=== PATIENT | female | born 1925 | race Caucasian/White ===

== ENCOUNTER 2017-05-05 11:19 | Inpatient (IN) | payer MEDICARE ==
[2017-05-05] MEDS ORDERED: NORMAL SALINE 1000 ML 1,000 ML IV PRN ×2 (11:24→15:10)
--- NOTE | 2017-05-05 11:28 | ER Document Report ---
ED General - General Stated Complaint: DIFFICULTY BREATHING Time Seen by Provider: 05/05/17 11:23 Mode of Arrival: Medic Information source: Emergency Med Personnel TRAVEL OUTSIDE OF THE [place] IN LAST 30 DAYS: No - HPI Patient complains to provider of: Altered mental status, difficulty breathing Onset: This morning Associated symptoms: Nonproductive cough, Shortness of breath Notes: Patient is an 89-year-old female sent from the [facility] for complaints of altered mental status with difficulty breathing, rapid respiratory rate, patient is normally more interactive, today she is crying out incomprehensibly, she is breathing at a rapid rate in the 30-40 range when EMS arrived, she did not seem to have any signs of trauma, patient is not answering questions at time of her arrival in the emergency room and therefore difficult to obtain a good history - Related Data Allergies/Adverse Reactions: ibuprofen [From Motrin] Allergy (Verified 05/05/17 11:46) Home Medications: Current Home Medications Acetaminophen [Tylenol 325 mg Tablet] 325 mg PO QAM 05/05/17 [History] Acetaminophen [Tylenol 325 mg Tablet] 650 mg PO Q6HP PRN 05/05/17 [History] Aspirin [Aspirin 325 mg Tablet] 325 mg PO DAILY 05/05/17 [History] Bacitracin [Bacitracin Oint Packets 144/Box] 1 applic TOP PRN PRN 05/05/17 [ History] Calcium Carbonate/Vitamin D3 [Calcium 600 + Vit D 400 Tablet] 1 tab PO BID 05/05 [History] Carvedilol [Coreg 6.25 mg Tablet] 6.25 mg PO Q12 05/05/17 [History] Cholecalciferol (Vitamin D3) [Vitamin D3 5000 unit Capsule] 5,000 unit PO BID [History] Cold Cream/Zinc Oxide/Star/Elvin [[place] Ointment] 1 applic TOP PRN PRN [History] Digoxin [Lanoxin 0.125 mg Tablet] 0.125 mg PO QHS 05/05/17 [History] Divalproex Sodium [Depakote] 125 mg PO QHS 05/05/17 [History] Donepezil HCl [Aricept 5 mg Tablet] 5 mg PO DAILY 05/05/17 [History] Ferrous Sulfate [Feosol 325 mg Tablet] 325 mg PO QHS 05/05/17 [History] Guaifenesin [Tussin] 10 ml PO Q4HP PRN 05/05/17 [History] Lisinopril [Prinivil 5 mg Tablet] 5 mg PO DAILY 05/05/17 [History] Magnesium Hydroxide [Milk of Magnesia 30 ml Udcup] 30 ml PO PRN PRN 05/05/17 [ History] Omeprazole 20 mg PO DAILY 05/05/17 [History] Pyridoxine HCl [Vitamin B-6] 50 mg PO DAILY 05/05/17 [History] Risperidone [Risperdal] 0.5 mg PO QHS 05/05/17 [History] Past Medical History - General Information source: Emergency Med Personnel - Social History Smoking Status: Unknown if Ever Smoked Family History: Reviewed & Not Pertinent - Past Medical History Cardiac Medical History: Reports: Hx Congestive Heart Failure, Hx Heart Attack, Hx Hypertension Psychiatric Medical History: Reports: Hx Dementia, Hx Depression Past Surgical History: Reports: Hx Cardiac Surgery - pacemaker, Hx Cholecystectomy, Hx Hysterectomy, Hx Pacemaker Review of Systems - Review of Systems -: Yes ROS unobtainable due to patient's medical condition Constitutional: No symptoms reported EENT: No symptoms reported Cardiovascular: No symptoms reported Respiratory: See HPI Gastrointestinal: No symptoms reported Genitourinary: No symptoms reported Female Genitourinary: No symptoms reported Musculoskeletal: No symptoms reported Skin: No symptoms reported Hematologic/Lymphatic: No symptoms reported Neurological/Psychological: Confusion Physical Exam - Vital signs Vitals: Temp Pulse Resp BP Pulse Ox 98.1 F 102 H 26 H 149/99 H 93 05/05/17 11:20 05/05/17 11:20 05/05/17 11:20 05/05/17 11:20 05/05/17 11:20 Interpretation: Tachypneic - General General appearance: Alert - HEENT Head: Normocephalic, Atraumatic Eyes: Normal Conjunctiva: Normal Extraocular movements intact: Yes Eyelashes: Normal Pupils: PERRL Mucous membranes: Dry Pharynx: Normal - Respiratory Respiratory status: No respiratory distress, Tachypnea Chest status: Nontender Breath sounds: Normal Chest palpation: Normal - Cardiovascular Rhythm: Regular Heart sounds: Normal auscultation - Abdominal Inspection: Normal Distension: No distension Bowel sounds: Normal Tenderness: Nontender Organomegaly: No organomegaly - Back Back: Normal, Nontender - Extremities General upper extremity: Normal inspection Calf: Other - 2 Centimeter skin tear to the left posterior calf Foot: Edema - trace pedal edema - Neurological Deepika Coma Scale Eye Opening: Spontaneous [place] Coma Scale Verbal: Incomprehensible [place] Coma Scale Motor: Obeys Commands Deepika Coma Scale Total: 12 - Skin Skin Temperature: Warm Skin Moisture: Dry Skin Color: Normal Course - Re-evaluation Re-evalutation: 05/05/17 11:57 Patient's daughter, Winnie Schneider, is at bedside, reports that patient has actually been deteriorating since Saturday of last week, when she noted patient was not eating which is unusual for her, and over the past few days she has become significantly worse, 100 does report that it is patient's wish to be a DNR/DNI, it is also daughter's wish for patient to be DNR/DNI, even though no official paperwork has arrived with patient's chart from the [facility] 05/05/17 13:35 Patient lab and imaging findings were reviewed, she is noted to have quite a few abnormalities, I had a lengthy discussion with patient's daughter Winnie, at bedside regarding her prognosis which is poor at this point in time, patient' s daughter agrees that no invasive measures should be taken at this point in time, she is agreeable to BiPAP with IV fluids and antibiotics, as well as comfort care measures at this point in time Was discussed with Dr. Ritter who agrees to admit for further evaluation and treatment - Vital Signs Vital signs: Temp Pulse Resp BP Pulse Ox 97.9 F 92 35 H 92/35 L 91 L 05/05/17 16:09 05/05/17 16:09 05/05/17 16:20 05/05/17 16:09 05/05/17 16:20 - Laboratory Result Diagrams: 05/05/17 11:23 05/05/17 11:23 Laboratory results interpreted by me: 05/05/17 05/05/17 05/05/17 11:23 11:23 11:23 RBC 5.66 H Hgb 16.5 H Hct 52.7 H MCHC 31.3 L RDW 16.4 H Seg Neutrophils % 78.3 H Lymphocytes % 12.2 L D-Dimer VBG pH VBG pCO2 VBG HCO3 Sodium 145.2 H Potassium 6.1 H* Carbon Dioxide 35 H BUN 74 H Creatinine 1.51 H Est GFR ( Amer) 39 L Est GFR (Non-Af Amer) 32 L Glucose 112 H Direct Bilirubin 0.5 H AST 47 H ALT 65 H NT-Pro-B Natriuret Pep 21394 H Albumin 3.4 L Urine Protein Urine Blood Urine Urobilinogen Ur Leukocyte Esterase Digoxin 0.71 L 05/05/17 05/05/17 05/05/17 11:23 11:23 12:20 RBC Hgb Hct MCHC RDW Seg Neutrophils % Lymphocytes % D-Dimer 1.84 H VBG pH 7.27 L VBG pCO2 77.1 H* VBG HCO3 34.8 H Sodium Potassium Carbon Dioxide BUN Creatinine Est GFR ( Amer) Est GFR (Non-Af Amer) Glucose Direct Bilirubin AST ALT NT-Pro-B Natriuret Pep Albumin Urine Protein >=500 H Urine Blood MODERATE H Urine Urobilinogen 2.0 H Ur Leukocyte Esterase MODERATE H Digoxin - Diagnostic Test Radiology reviewed: Image reviewed, Reports reviewed - EKG Interpretation by Me EKG shows normal: Sinus rhythm Rate: Normal Rhythm: NSR Heart block present: 1st Degree Critical Care Note - Critical Care Note Total time excluding time spent on procedures (mins): 45 Comments: Patient arrived in respiratory distress with rapid shallow breathing, tachypnea , requiring BiPAP placement, and admission to the hospitalist service Discharge - Discharge Clinical Impression: Do not resuscitate status, Acute hypoxemic respiratory failure, Elevated troponin, SIRS (systemic inflammatory response syndrome), Hyperkalemia UTI (urinary tract infection) Qualifiers: Urinary tract infection type: site unspecified Hematuria presence: without hematuria Qualified Code(s): N39.0 - Urinary tract infection, site not specified Condition: Critical Disposition: ADMITTED INPATIENT Admitting Provider: Hospitalist Unit Admitted: Medical Floor
[2017-05-05 11:40] LABS: VENOUS BLOOD BASE EXCESS 4.6 mmol/L; VENOUS BLOOD HCO3 34.8 mmol/L (20-32); VENOUS BLOOD PH 7.27 (7.30-7.42)
[2017-05-05 11:42] LABS: VENOUS BLOOD PCO2 77.1 mmHg (35-63)
[2017-05-05 11:45] LABS: ABSOLUTE LYMPHOCYTES (AUTO) 1.3 10^3/uL (0.5-4.7); ABSOLUTE MONOCYTES (AUTO) 0.9 10^3/uL (0.1-1.4); ABSOLUTE NEUT (AUTO) 8.1 10^3/uL (1.7-8.2); BASOPHILS % (AUTO) 0.3 % (0-2); EOSINOPHILS % (AUTO) 0.3 % (0-6); HEMATOCRIT 52.7 % (36.0-47.0); HEMOGLOBIN 16.5 g/dL (12.0-15.5); HGB HCT DIFFERENCE -3.2; LYMPHOCYTES % (AUTO) 12.2 % (13-45); MEAN CORPUSCULAR HEMOGLOBIN 29.2 pg (27.0-33.4); MEAN CORPUSCULAR HGB CONC 31.3 g/dL (32.0-36.0); MEAN CORPUSCULAR VOLUME 93 fl (80-97); MONOCYTES % (AUTO) 8.9 % (3-13); RED BLOOD COUNT 5.66 10^6/uL (3.72-5.28); RED CELL DISTRIBUTION WIDTH 16.4 % (11.5-14.0); SEGMENTED NEUTROPHILS % (AUTO) 78.3 % (42-78); WHITE BLOOD COUNT 10.4 10^3/uL (4.0-10.5)
[2017-05-05 11:49] LABS: PARTIAL THROMBOPLASTIN TIME 26.7 SEC (23.5-35.8); PROTHROMBIN TIME 13.9 SEC (11.4-15.4)
[2017-05-05 12:01] LABS: ALANINE AMINOTRANSFERASE 65 U/L (9-52); ALBUMIN 3.4 g/dL (3.5-5.0); ALKALINE PHOSPHATASE 65 U/L (38-126); ANION GAP 9 (5-19); ASPARTATE AMINO TRANSFERASE 47 U/L (14-36); BILIRUBIN,DIRECT 0.5 mg/dL (0.0-0.4); BILIRUBIN,TOTAL 0.5 mg/dL (0.2-1.3); BLOOD UREA NITROGEN 74 mg/dL (7-20); CARBON DIOXIDE 35 mmol/L (22-30); CHLORIDE 101 mmol/L (98-107); CREATINE KINASE 32 U/L (30-135); CREATININE RESULT 1.51 mg/dL (0.52-1.25); GLUCOSE 112 mg/dL (75-110); SODIUM 145.2 mmol/L (137-145); TOTAL PROTEIN 6.7 g/dL (6.3-8.2)
--- NOTE | 2017-05-05 12:05 | RADIOLOGY REPORT (SQ) ---
EXAM DESCRIPTION: CHEST SINGLE VIEW COMPLETED DATE/TIME: 05/05/2017 11:51 am REASON FOR STUDY: db COMPARISON: 2015. CT chest 10/04/2016. NUMBER OF VIEWS: One view. TECHNIQUE: Single frontal radiographic view of the chest acquired. LIMITATIONS: None. FINDINGS: LUNGS AND PLEURA: Diminished aeration left base could reflect pneumonia. No significant p leural fluid. No pneumothorax. MEDIASTINUM AND HILAR STRUCTURES: Stable contours. HEART AND VASCULAR STRUCTURES: Heart size probably stable allowing for portable technique. There gee ears to be some cardiomegaly. Minimal vascular congestion may be present but otherwise, no overt errol ma. BONES: Osteopenic. Limited assessment. No acute fracture evident. HARDWARE: Right pacer. Extensive external lead artifacts. OTHER: No other significant finding. IMPRESSION: 1. Diminished aeration left base could reflect pneumonia. Otherwise, mild vascular fifi estion. TECHNICAL DOCUMENTATION: JOB ID: [id number] [employer]- All Rights Reserved
[2017-05-05 12:08] LABS: DIGOXIN 0.71 ng/mL (0.8-2.0)
[2017-05-05 12:10] LABS: POTASSIUM 6.1 mmol/L (3.6-5.0)
[2017-05-05 12:13] LABS: CREATINE KINASE MB 1.49 ng/mL (<4.55)
[2017-05-05] MEDS ORDERED: DEXTROSE 50%-WATER 25 GM/50 ML DISP.SYRIN IV ONE (12:13)
[2017-05-05] MEDS ORDERED: CALCIUM GLUCONATE 1000 MG/10 ML INJ IV ONE (12:13)
[2017-05-05] MEDS ORDERED: INSULIN REG, HUMAN 100 UNIT/ML 3 ML VIAL (PYX) IV ONE (12:13)
[2017-05-05 12:26] LABS: TROPONIN I 0.271 ng/mL
[2017-05-05] MEDS ORDERED: ASPIRIN 81 MG TABLET, CHEWABLE PO ONE (12:28)
[2017-05-05 12:53] LABS: AMORPHOUS SEDIMENT,URINE TRACE /HPF; APPEARANCE,URINE TURBID; BILIRUBIN,URINE NEGATIVE (NEGATIVE); GLUCOSE, URINE NEGATIVE (NEGATIVE); KETONES,URINE NEGATIVE (NEGATIVE); LEUKOCYTE ESTERASE,URINE MODERATE (NEGATIVE); NITRITE,URINE NEGATIVE (NEGATIVE); PROTEIN,URINE >=500 mg/dL (NEGATIVE); URINE SPECIFIC GRAVITY 1.018
[2017-05-05] MEDS ORDERED: ASPIRIN 300 MG SUPP, RECTAL PR ONE (13:02)
[2017-05-05] MEDS ORDERED: CEFTRIAXONE INJ 1000 MG VIAL IV ONE (13:04)
--- NOTE | 2017-05-05 13:26 | EKG REPORT ---
SEVERITY:- ABNORMAL ECG - SINUS RHYTHM FIRST DEGREE AV BLOCK PROBABLE LEFT ATRIAL ABNORMALITY LEFT ANTERIOR FASCICULAR BLOCK ANTERIOR INFARCT, OLD : Confirmed by: Socorro Thomas 05-May-2017 13:26:16
[2017-05-05] MEDS ORDERED: DEXTROSE 50%-WATER 25 GM/50 ML DISP.SYRIN IV PRN ×2 (14:55)
[2017-05-05] MEDS ORDERED: DEXTROSE 40% GEL 15 GM TUBE PO PRN ×2 (14:55)
[2017-05-05] MEDS ORDERED: GLUCAGON,HUMAN RECOMB 1 MG INJ SUBCUT PRN (14:55)
[2017-05-05] MEDS ORDERED: ALBUTEROL SULFATE 0.083% NEB 2.5 MG/3 ML AMPUL NEB PRN (15:10)
[2017-05-05] MEDS ORDERED: ACETAMINOPHEN 650 MG SUPP.RECT PR PRN (15:15)
[2017-05-05] MEDS ORDERED: ACETAMINOPHEN 325 MG TABLET PO PRN (15:15)
[2017-05-05] MEDS ORDERED: ONDANSETRON HCL INJ/PF 4 MG/2 ML SDV IV PRN (15:15)
--- NOTE | 2017-05-05 16:58 | PDOC H&P ---
History of Present Illness Admission Date/PCP: 05/05/17 13:52 BRIANNE PINTO MD Patient complains of: low o2 sats History of Present Illness: NITA SIFUENTES is a 89 year old female with advanced dementia living at [facility] presents today when staff noted her O2 sat low into the 70's and she was less responsive than normal. She is currently obtunded and according to the daughter wouldn't be able to provide ROS or medical hx on her best day anyway, she usually just "hollers out" randomly and only occasionally will she string a few words together that don't always seem appropriate to the conversation at hand. she also notes she is bed bound, hasn't ambulated in years but is able to feed herself and is alert and sits up in chair most days. She saw her last on Sat and she seemed barely able to keep her eyes open at the time but no cough or phlegm, no reported fevers or strong smell f urine and otherwise seemed in her usual state of health. eval in the ED shows her hypercapnic and hypoxic resp failure, she is currently on BiPAP and still not responsive, clear CXR, probable UTI, volume depletion, CONY and hyperkalemia for which she received insulin/dextrose and we were asked to admit for further eval and management. she is DNR Past Medical History Cardiac Medical History: Reports: Congestive Heart Failure, Myocardial Infarction, Hypertension Psychiatric Medical History: Reports: Dementia, Depression Past Surgical History Past Surgical History: Reports: Cholecystectomy, Hysterectomy, Pacemaker Social History Information Source: Relative Smoking Status: Never Smoker Frequency of Alcohol Use: None Hx Recreational Drug Use: No Hx Prescription Drug Abuse: No - Advance Directive Resuscitation Status: Do Not Resuscitate Family History Family History: Reviewed & Not Pertinent Parental Family History Reviewed: Yes Children Family History Reviewed: Yes Sibling(s) Family History Reviewed.: Yes Medication/Allergy Home Medications: Acetaminophen [Tylenol 325 mg Tablet] 325 mg PO QAM 05/05/17 Acetaminophen [Tylenol 325 mg Tablet] 650 mg PO Q6HP PRN 05/05/17 Aspirin [Aspirin 325 mg Tablet] 325 mg PO DAILY 05/05/17 Bacitracin [Bacitracin Oint Packets 144/Box] 1 applic TOP PRN PRN 05/05/17 Calcium Carbonate/Vitamin D3 [Calcium 600 + Vit D 400 Tablet] 1 tab PO BID 05/05 Carvedilol [Coreg 6.25 mg Tablet] 6.25 mg PO Q12 05/05/17 Cholecalciferol (Vitamin D3) [Vitamin D3 5000 unit Capsule] 5,000 unit PO BID Cold Cream/Zinc Oxide/Star/Elvin [Dermacloud Ointment] 1 applic TOP PRN PRN Digoxin [Lanoxin 0.125 mg Tablet] 0.125 mg PO QHS 05/05/17 Divalproex Sodium [Depakote] 125 mg PO QHS 05/05/17 Donepezil HCl [Aricept 5 mg Tablet] 5 mg PO DAILY 05/05/17 Ferrous Sulfate [Feosol 325 mg Tablet] 325 mg PO QHS 05/05/17 Guaifenesin [Tussin] 10 ml PO Q4HP PRN 05/05/17 Lisinopril [Prinivil 5 mg Tablet] 5 mg PO DAILY 05/05/17 Magnesium Hydroxide [Milk of Magnesia 30 ml Udcup] 30 ml PO PRN PRN 05/05/17 Omeprazole 20 mg PO DAILY 05/05/17 Pyridoxine HCl [Vitamin B-6] 50 mg PO DAILY 05/05/17 Risperidone [Risperdal] 0.5 mg PO QHS 05/05/17 Allergies/Adverse Reactions: ibuprofen [From Motrin] Allergy (Verified 05/05/17 11:46) Review of Systems ROS unobtainable: Due to mental status Physical Exam Vital Signs: Temp Pulse Resp BP Pulse Ox 98.1 F 102 H 30 H 106/93 H 94 05/05/17 11:20 05/05/17 11:20 05/05/17 15:19 05/05/17 15:01 05/05/17 15:19 General appearance: PRESENT: well-developed, well-nourished. ABSENT: no acute distress - obtunded, will not respond to noxious stimuli Head exam: PRESENT: atraumatic, normocephalic Mouth exam: PRESENT: dry mucosa, neck supple, tongue midline Neck exam: PRESENT: other - bipap mask in place. ABSENT: tracheal deviation Respiratory exam: PRESENT: accessory muscle use, clear to auscultation alvina, decreased breath sounds - at the bases. ABSENT: rales, rhonchi, stridor, wheezes Cardiovascular exam: PRESENT: RRR. ABSENT: systolic murmur Pulses: PRESENT: normal radial pulses Vascular exam: ABSENT: normal capillary refill - diminished GI/Abdominal exam: PRESENT: hypoactive bowel sounds, soft. ABSENT: tenderness Extremities exam: PRESENT: pedal edema - trace at the ankles. ABSENT: clubbing Neurological exam: PRESENT: altered Skin exam: PRESENT: dry, mottled - fingers and toes. ABSENT: warm - cool and dusky Results Laboratory Results: labs reviewed, elevated pCO2 and decreased O2, elevated dimer, hemoconcenctration on labs, ARF with normal Scr 0.9 now 1.5, BNP 20274 and TpI 0.271 EKG Comments: NSR with 1st AVB, poor R wave progression, no ST changes to suggest acute ischemia Impressions: Chest X-Ray 05/05/17 11:24 IMPRESSION: 1. Diminished aeration left base could reflect pneumonia. Otherwise, mild vascular congestion. Assessment & Plan - Diagnosis (1) Acute respiratory failure with hypoxia and hypercapnia Is this a current diagnosis for this admission?: YesPlan: unclear etiology but given relative immobility, advanced age and elevated dimer certainly could be acute PE; other possibillities include acute DC with stunned myocardium and hypovolemic relative heart/pump failure that she is too intravascularly depleted to reflect on physical exam at this time. continue BiPAP through the night and if no improvement in her condition by morning her daughter will probably have this removed. (2) Do not resuscitate status Is this a current diagnosis for this admission?: Yes (3) Elevated troponin Is this a current diagnosis for this admission?: YesPlan: after discussion with daughter/POA, she doesn't want aggressive intervention so no need to trend ecgs or ck repeat echo; will treat for AMI as her condition will allow, currently she is too sedated to take oral meds. (4) Hyperkalemia Is this a current diagnosis for this admission?: YesPlan: received insulin/dextrose in ED, will repeat labs in am but again no aggressive intervention and she is too weak to tolerate kayexolate, I suspect this is secondary to myocardial ischemia complicated by her acute renal failure (5) UTI (urinary tract infection) Qualifiers: Urinary tract infection type: site unspecified Hematuria presence: without hematuria Qualified Code(s): N39.0 - Urinary tract infection, site not specified (6) Coronary artery disease Qualifiers: Coronary Disease-Associated Artery/Lesion type: [place] artery [place] vs. transplanted heart: [place] heart Associated angina: angina presence unspecified Qualified Code(s): I25.10 - Atherosclerotic heart disease of [place] coronary artery without angina pectoris Is this a current diagnosis for this admission?: YesPlan: see above (7) Dementia Qualifiers: Dementia type: unspecified type Dementia behavioral disturbance: with behavioral disturbance Qualified Code(s): F03.91 - Unspecified dementia with behavioral disturbance Is this a current diagnosis for this admission?: Yes (8) Diastolic CHF Qualifiers: Congestive heart failure chronicity: acute on chronic Qualified Code (s): I50.33 - Acute on chronic diastolic (congestive) heart failure Is this a current diagnosis for this admission?: YesPlan: probably accounts for at least some of her elevated BNP; last echo 2016 shows grade 2/4 diastolic dysfxn, hypokinesis LV, probable patent FO, moderate MR and mild TR. she appears hypovolemic so will need to give IVFs at least overnight and monitor for effect. (9) Dysphagia Qualifiers: Dysphagia type: unspecified Qualified Code(s): R13.10 - Dysphagia, unspecified Is this a current diagnosis for this admission?: YesPlan: she is on modified consistency while at the facility; NPO for now until she is alert enough to reassess. - Time Time Spent: Greater than 70 Minutes Medications reviewed and adjusted accordingly: Yes - Inpatient Certification Based on my medical assessment, after consideration of the patient's comorbidities, presenting symptoms, or acuity I expect that the services needed warrant INPATIENT care.: Yes I certify that my determination is in accordance with my understanding of Medicare's requirements for reasonable and necessary INPATIENT services [42 CFR 412.3e].: Yes Medical Necessity: Significant Comorbidiites Make Outpatient Treatment Too Risky , Need Close Monitoring Due to Risk of Patient Decompensation, Need For IV Fluids, Need for IV Antibiotics, Risk of Complication if Not Cared For in Hospital - Plan Summary Plan Summary: had long discussion with her daughter and we are going to take a very conservative approach,family is coming in from [place] and should arrive by morning ; will continue BiPAP overnight and d/c in am if on appreciable impact per daughter's wishes; she is ok for abx and breathing treatments but no aggressive or invasive interventions.
[2017-05-05] MEDS: IPRATROPIUM/ALBUTEROL 0.5-2.5 MG/3 ML AMPUL NEB SCH (19:33)
[2017-05-05] MEDS: ENOXAPARIN SODIUM INJ 60 MG/0.6 ML DISP.SYRIN SUBCUT SCH (21:01)
[2017-05-05] MEDS ORDERED: HEPARIN SOD (PORCINE) 5,000 UNIT/ML 1 ML SYRINGE SUBCUT SCH (22:00)
[2017-05-05] MEDS: FAMOTIDINE INJ/PF 20 MG/2 ML SDV IV SCH (22:27)
[2017-05-06] MEDS: IPRATROPIUM/ALBUTEROL 0.5-2.5 MG/3 ML AMPUL NEB SCH ×4 (01:43→20:24)
[2017-05-06 05:09] LABS: ABSOLUTE EOSINOPHILS # (AUTO) 0.1 10^3/uL (0.0-0.6); ABSOLUTE LYMPHOCYTES (AUTO) 1.3 10^3/uL (0.5-4.7); ABSOLUTE MONOCYTES (AUTO) 0.9 10^3/uL (0.1-1.4); ABSOLUTE NEUT (AUTO) 6.4 10^3/uL (1.7-8.2); BASOPHILS % (AUTO) 0.4 % (0-2); EOSINOPHILS % (AUTO) 1.1 % (0-6); HEMATOCRIT 48.7 % (36.0-47.0); HEMOGLOBIN 15.1 g/dL (12.0-15.5); HGB HCT DIFFERENCE -3.4; LYMPHOCYTES % (AUTO) 14.5 % (13-45); MEAN CORPUSCULAR HGB CONC 30.9 g/dL (32.0-36.0); MEAN CORPUSCULAR VOLUME 94 fl (80-97); MONOCYTES % (AUTO) 10.2 % (3-13); SEGMENTED NEUTROPHILS % (AUTO) 73.8 % (42-78); WHITE BLOOD COUNT 8.6 10^3/uL (4.0-10.5)
[2017-05-06 05:21] LABS: ANION GAP 9 (5-19); BLOOD UREA NITROGEN 80 mg/dL (7-20); CALCIUM 8.8 mg/dL (8.4-10.2); CARBON DIOXIDE 33 mmol/L (22-30); CHLORIDE 103 mmol/L (98-107); CREATININE RESULT 1.66 mg/dL (0.52-1.25); GLUCOSE 86 mg/dL (75-110); SODIUM 145.3 mmol/L (137-145)
[2017-05-06 05:28] LABS: POTASSIUM 6.4 mmol/L (3.6-5.0)
[2017-05-06] MEDS ORDERED: LORAZEPAM INJ 2 MG/1 ML VIAL IV ONE (08:30)
[2017-05-06] MEDS ORDERED: SODIUM POLYSTYRENE SULFONATE 15 GM/60 ML PO ONE (08:30)
[2017-05-06] MEDS ORDERED: INSULIN REG, HUMAN 100 UNIT/ML 3 ML VIAL (PYX) IV ONE (08:30)
[2017-05-06] MEDS ORDERED: DEXTROSE 50%-WATER 25 GM/50 ML DISP.SYRIN IV ONE (08:30)
[2017-05-06] MEDS ORDERED: DIVALPROEX SODIUM 125 MG CAP.SPRINK PO ONE (09:00)
[2017-05-06] MEDS ORDERED: CEFTRIAXONE 1 GM/D5W RTU 1 GM/50 ML RTUPB IV SCH (10:00)
[2017-05-06] MEDS: FAMOTIDINE INJ/PF 20 MG/2 ML SDV IV SCH (10:38)
--- NOTE | 2017-05-06 13:25 | PDOC PROGRESS REPORT ---
Subjective Progress Note for:: 05/06/17 Subjective:: reason for visit: f/u resp failure, possible PE, NSTEMI, UTI hospital course: NITA SIFUENTES is a 89 year old female with advanced dementia living at [facility] presents today when staff noted her O2 sat low into the 70's and she was less responsive than normal. She is currently obtunded and according to the daughter wouldn't be able to provide ROS or medical hx on her best day anyway, she usually just "hollers out" randomly and only occasionally will she string a few words together that don't always seem appropriate to the conversation at hand. she also notes she is bed bound, hasn't ambulated in years but is able to feed herself and is alert and sits up in chair most days. She saw her last on Sat and she seemed barely able to keep her eyes open at the time but no cough or phlegm, no reported fevers or strong smell of urine and otherwise seemed in her usual state of health. eval in the ED shows her hypercapnic and hypoxic resp failure, she is currently on BiPAP and still not responsive, clear CXR, probable UTI, volume depletion, CONY and hyperkalemia for which she received insulin/dextrose and we were asked to admit for further eval and management. she is DNR. By Saturday she had awakened enough to fight with the staff regarding the BiPAP, she calls out or grunts her displeasure and physically removes the mask from her face. Her daughter states she seems to be hallucinating by reaching into the air for things that aren't there, fiddling with her hands like there is something in them or staring off into space. she moves all 4 extremities but will not follow commands. she will participate in her interview or even seem aware of my presence until I try to examine her and she swats at or pulls away my hands. ROS: unobtainable due to her mental state Physical Exam Vital Signs: Temp Pulse Resp BP Pulse Ox 97.5 F 69 22 H 119/96 H 86 L 05/06/17 07:58 05/06/17 08:51 05/06/17 08:51 05/06/17 07:58 05/06/17 08:51 Intake & Output 05/05/17 05/06/17 05/07/17 06:59 06:59 06:59 Intake Total 2 Output Total 0 Balance 2 Weight 56.4 kg General appearance: PRESENT: mild distress, well-developed Head exam: PRESENT: atraumatic, normocephalic Eye exam: PRESENT: EOMI. ABSENT: conjunctival injection, scleral icterus Mouth exam: PRESENT: dry mucosa, neck supple Neck exam: ABSENT: tracheal deviation Respiratory exam: PRESENT: clear to auscultation alvina - anterior apex only place I could ascultate without really upsetting her. ABSENT: tachypnea, wheezes Cardiovascular exam: PRESENT: RRR, tachycardia Pulses: PRESENT: normal dorsalis pedis pul GI/Abdominal exam: PRESENT: hypoactive bowel sounds, soft Extremities exam: PRESENT: +1 edema Neurological exam: PRESENT: altered, awake Psychiatric exam: PRESENT: agitated, anxious Focused psych exam: PRESENT: psychomotor agitation, restlessness Skin exam: PRESENT: dry. ABSENT: warm - cool Results Laboratory Results: 05/06/17 04:27 05/06/17 04:27 05/06/17 05/06/17 04:27 04:27 WBC 8.6 RBC 5.20 Hgb 15.1 Hct 48.7 H MCV 94 MCH 29.0 MCHC 30.9 L RDW 16.0 H Plt Count 121 L Seg Neutrophils % 73.8 Lymphocytes % 14.5 Monocytes % 10.2 Eosinophils % 1.1 Basophils % 0.4 Absolute Neutrophils 6.4 Absolute Lymphocytes 1.3 Absolute Monocytes 0.9 Absolute Eosinophils 0.1 Absolute Basophils 0.0 Sodium 145.3 H Potassium 6.4 H* Chloride 103 Carbon Dioxide 33 H Anion Gap 9 BUN 80 H Creatinine 1.66 H Est GFR ( Amer) 35 L Est GFR (Non-Af Amer) 29 L Glucose 86 Calcium 8.8 05/06/17 04:27 Troponin I 0.282 Impressions: Chest X-Ray 05/05/17 11:24 IMPRESSION: 1. Diminished aeration left base could reflect pneumonia. Otherwise, mild vascular congestion. Assessment & Plan - Diagnosis (1) Acute respiratory failure with hypoxia and hypercapnia Is this a current diagnosis for this admission?: YesPlan: unclear etiology but given relative immobility, advanced age and elevated dimer certainly could be acute PE; other possibillities include acute SC with stunned myocardium and pump failure. (2) Elevated troponin Is this a current diagnosis for this admission?: YesPlan: slightly worse; after discussion with daughter/POA, she doesn't want aggressive intervention so no need to trend ecgs or ck repeat echo; will treat for AMI as her condition will allow, currently she is too confused alternating with sedated to take oral meds. (3) Hyperkalemia Is this a current diagnosis for this admission?: YesPlan: worse; worrisome for ischemia but unclear whether related to heart, brain, bowel or what at this point. she received insulin/dextrose in ED, will repeat again this morning and not repeat labs as no aggressive intervention desired by family as they move closer to comfort measures with each new problem that arises (4) UTI (urinary tract infection) Qualifiers: Urinary tract infection type: site unspecified Hematuria presence: without hematuria Qualified Code(s): N39.0 - Urinary tract infection, site not specified Is this a current diagnosis for this admission?: YesPlan: agreeable to continuing IV rocephin until culture results back to confirm pathogen (5) Acute encephalopathy Is this a current diagnosis for this admission?: YesPlan: waxing and waning; multifactorial and 2/2 to UTI, hypercapnea, hypoxia and must entertain the possibility of stroke accounting for her sudden change, elevated BNP and troponins, etc. (6) Coronary artery disease Qualifiers: Coronary Disease-Associated Artery/Lesion type: [place] artery [place] vs. transplanted heart: [place] heart Associated angina: angina presence unspecified Qualified Code(s): I25.10 - Atherosclerotic heart disease of [place] coronary artery without angina pectoris Is this a current diagnosis for this admission?: YesPlan: see above (7) Dementia Qualifiers: Dementia type: unspecified type Dementia behavioral disturbance: with behavioral disturbance Qualified Code(s): F03.91 - Unspecified dementia with behavioral disturbance; F10.97 - Alcohol use, unspecified with alcohol- induced persisting dementia Is this a current diagnosis for this admission?: Yes (8) Diastolic CHF Qualifiers: Congestive heart failure chronicity: acute on chronic Qualified Code (s): I50.33 - Acute on chronic diastolic (congestive) heart failure Is this a current diagnosis for this admission?: Yes (9) Dysphagia Qualifiers: Dysphagia type: unspecified Qualified Code(s): R13.10 - Dysphagia, unspecified Is this a current diagnosis for this admission?: Yes (10) Do not resuscitate status Is this a current diagnosis for this admission?: Yes - Time Time Spent with patient: 25-34 minutes - Plan Summary Plan Summary: I met with her daughter at the bedside, she is POA, we discussed her findings and she reiterated her desire for no aggressive interventions or even investigations at this point. she states this is in accordance with her mother' s stated wishes when she made her POA. I described all likely pathologic processes in play here and what we could about each and she is agreeable to continuing Iv abx, gently IVFs but with a stop date, supplemental O2 for comfort , subQ lovenox once daily (accepting its asct'd risks) and general supportive care. She no longer wants BiPAP used and if her respiratory status declines, she is agreeable to change to comfort measures and use of morphine to relieve breathlessness and agitation asct'd with respiratory compromise. it is unclear whether she will improve with treatment of her UTI and presumptive tx of possible PE and NSTEMI. I feel her prognosis for a meaningful recovery is grim even with aggressive treatment and wholeheartedly support her daughter's decisions for conservative approach to treatment.
[2017-05-06] MEDS ORDERED: ONDANSETRON HCL INJ/PF 4 MG/2 ML SDV IV PRN (15:23)
[2017-05-06] MEDS ORDERED: MORPHINE SULFATE 10 MG/ML INJ SUBCUT PRN (15:58)
[2017-05-06] MEDS ORDERED: ONDANSETRON 4 MG TAB.RAPDIS PO PRN (16:04)
[2017-05-06] MEDS: HALOPERIDOL LACTATE INJ 5 MG/1 ML VIAL IM PRN (16:21)
[2017-05-06] MEDS: ENOXAPARIN SODIUM INJ 60 MG/0.6 ML DISP.SYRIN SUBCUT SCH (17:30)
[2017-05-06] MEDS ORDERED: IPRATROPIUM/ALBUTEROL 0.5-2.5 MG/3 ML AMPUL NEB PRN (20:25)
[2017-05-06] MEDS: DIVALPROEX SODIUM 125 MG CAP.SPRINK PO SCH (23:29)
[2017-05-07] MEDS: HALOPERIDOL LACTATE INJ 5 MG/1 ML VIAL IM PRN ×3 (03:03→16:08)
[2017-05-07] MEDS: CEFTRIAXONE INJ 1000 MG VIAL IM SCH (09:28)
[2017-05-07] MEDS ORDERED: FAMOTIDINE INJ/PF 20 MG/2 ML SDV IV SCH (10:00)
[2017-05-07] MEDS ORDERED: CEFTRIAXONE INJ 1000 MG VIAL IM SCH (10:00)
[2017-05-07] MEDS ORDERED: LIDOCAINE HCL 1% INJ (FOR 500 MG VIAL) INJ SCH (10:00)
[2017-05-07] MEDS ORDERED: CEFTRIAXONE 1 GM/D5W RTU 1 GM/50 ML RTUPB IV SCH (10:00)
[2017-05-07 14:30] LABS: ANION GAP 12 (5-19); BLOOD UREA NITROGEN 73 mg/dL (7-20); CALCIUM 8.4 mg/dL (8.4-10.2); CARBON DIOXIDE 32 mmol/L (22-30); CHLORIDE 103 mmol/L (98-107); CREATININE RESULT 1.29 mg/dL (0.52-1.25); GLUCOSE 119 mg/dL (75-110); POTASSIUM 4.8 mmol/L (3.6-5.0); SODIUM 146.8 mmol/L (137-145)
--- NOTE | 2017-05-07 18:15 | PDOC PROGRESS REPORT ---
Subjective Progress Note for:: 05/07/17 Subjective:: This is a follow-up visit for acute metabolic encephalopathy and urinary tract infection. I have spoken with the patient's daughter at the bedside we have spoken at length about the patient and the current plan. The decision is to continue minimal intervention. Patient is currently demented and review of systems cannot be obtained Physical Exam Vital Signs: Temp Pulse Resp BP Pulse Ox 97.7 F 52 L 24 H 121/83 92 05/07/17 07:36 05/07/17 07:36 05/07/17 07:36 05/07/17 07:36 05/07/17 07:40 Intake & Output 05/06/17 05/07/17 05/08/17 06:59 06:59 06:59 Intake Total 2 300 Output Total 0 Balance 2 300 Weight 56.4 kg 60.3 kg Physical exam: General: This is a well-developed elderly white female resting in bed yelling out but in no acute distress Heart: Regular rate and rhythm no murmurs rubs or gallops, although it is difficult to tell considering the patient is yelling during the exam Lungs: Clear to auscultation bilaterally from the anterior perspective but again it is difficult to fully assess with the patient actively yelling during the exam Abdomen: Soft nondistended with active bowel sounds Extremities: No cyanosis or edema clubbing Neuro: Alert not oriented patient moves all extremities Results Laboratory Results: 05/06/17 04:27 05/06/17 04:27 05/06/17 04:27 Troponin I 0.282 Impressions: Chest X-Ray 05/05/17 11:24 IMPRESSION: 1. Diminished aeration left base could reflect pneumonia. Otherwise, mild vascular congestion. Assessment & Plan - Diagnosis (1) Acute encephalopathy Is this a current diagnosis for this admission?: YesPlan: Likely secondary to underlying urinary tract infection. According to the patient's family she is better today even though she is yelling this is her baseline. (2) Acute hypoxemic respiratory failure Plan: The patient will not keep oxygen on. Therefore, we have decided to simply leave it off. We are not going to continue to constantly check oxygen saturations. (3) Hyperkalemia Is this a current diagnosis for this admission?: YesPlan: After discussion with the daughter it was decided to recheck potassium. We can manage this with intramuscular injections of insulin and glucose we will do so. Recheck chem 7 now. (4) UTI (urinary tract infection) Qualifiers: Urinary tract infection type: site unspecified Hematuria presence: without hematuria Qualified Code(s): N39.0 - Urinary tract infection, site not specified Is this a current diagnosis for this admission?: YesPlan: Previous mirabilis was found in the urine. The Rocephin intramuscularly as the patient will sometimes refuse to take oral medications. In my discussion with discharge planning, her facility will not take her back with this medication but home health can be arranged at this facility. (5) Dysphagia Qualifiers: Dysphagia type: unspecified Qualified Code(s): R13.10 - Dysphagia, unspecified Is this a current diagnosis for this admission?: YesPlan: Since the family has no plans on putting in a PEG tube I do not think that restraining her from eating is the right thing to do. We will allow her to have a pured diet and see how she does from there. Her daughter is aware that this may lead to further episodes of aspiration followed by pneumonia. (6) Coronary artery disease Qualifiers: Coronary Disease-Associated Artery/Lesion type: [place] artery [place] vs. transplanted heart: [place] heart Associated angina: angina presence unspecified Qualified Code(s): I25.10 - Atherosclerotic heart disease of [place] coronary artery without angina pectoris Is this a current diagnosis for this admission?: YesPlan: In STEMI and PE were presumed to be present secondary to elevated D-dimers and mildly elevated troponins. Has been on therapeutic blood thinners since her admission. Since we are not going to continue any sort of long-term or even intermediate term use of blood thinners my recommendation is to simply stop them at this point. The daughter is in agreement with this - Time Time Spent with patient: 35 or more minutes - Inpatient Certification Medical Necessity: Need Close Monitoring Due to Risk of Patient Decompensation
[2017-05-07] MEDS: DIVALPROEX SODIUM 125 MG CAP.SPRINK PO SCH (21:32)
[2017-05-08] MEDS: LORAZEPAM 1 MG TABLET SL PRN ×2 (02:58→11:44)
[2017-05-08 08:00] LABS: HEMATOCRIT 47.1 % (36.0-47.0); HEMOGLOBIN 14.6 g/dL (12.0-15.5); HGB HCT DIFFERENCE -3.3; MEAN CORPUSCULAR VOLUME 94 fl (80-97); RED BLOOD COUNT 5.03 10^6/uL (3.72-5.28); RED CELL DISTRIBUTION WIDTH 15.8 % (11.5-14.0); WHITE BLOOD COUNT 6.7 10^3/uL (4.0-10.5)
[2017-05-08] MEDS: CEFTRIAXONE INJ 1000 MG VIAL IM SCH (09:50)
[2017-05-08] MEDS ORDERED: LIDOCAINE HCL 1% INJ (FOR 1 GM VIAL) INJ SCH (10:00)
[2017-05-08] MEDS ORDERED: LIDOCAINE HCL 1% INJ (FOR 500 MG VIAL) INJ SCH (10:00)
--- NOTE | 2017-05-08 12:52 | PDOC DISCHARGE SUMMARY ---
General - Admit/Disc Date/PCP Admission Date/Primary Care Provider: 05/05/17 14:58 BRIANNE PINTO MD Discharge Date: 05/08/17 - Discharge Diagnosis (1) Acute encephalopathy Is this a current diagnosis for this admission?: YesSummary: Worsening mental status from baseline. Resolved. (2) Acute hypoxemic respiratory failure Summary: The patient was initially hypoxemic and refused to keep on her oxygen. In an effort to minimize her agitation oxygen was taken off and the patient did well. (3) Hyperkalemia Is this a current diagnosis for this admission?: YesSummary: Resolved. (4) UTI (urinary tract infection) Is this a current diagnosis for this admission?: Yes (5) Dysphagia Is this a current diagnosis for this admission?: YesSummary: Continue Puree diet and aspiration precautions. Family would not pursue peg feeds if recommended -which I do not (6) Coronary artery disease Is this a current diagnosis for this admission?: YesSummary: Patient may or may not have had NSTEMI vs PE. The family opted not to pursue workup. Troponins were mildly elevated which could be NSTEMI, PE or strain. (7) Hypertension Summary: Continue home medications. - Additional Information Resuscitation Status: Do Not Resuscitate Discharge Diet: As Tolerated - puree, Regular Discharge Activity: Bedrest Home Medications: Acetaminophen [Tylenol 325 mg Tablet] 325 mg PO QAM 05/05/17 Acetaminophen [Tylenol 325 mg Tablet] 650 mg PO Q6HP PRN 05/05/17 Aspirin [Aspirin 325 mg Tablet] 325 mg PO DAILY 05/05/17 Bacitracin [Bacitracin Oint Packets 144/Box] 1 applic TOP PRN PRN 05/05/17 Calcium Carbonate/Vitamin D3 [Calcium 600 + Vit D 400 Tablet] 1 tab PO BID 05/05 Carvedilol [Coreg 6.25 mg Tablet] 6.25 mg PO Q12 05/05/17 Cholecalciferol (Vitamin D3) [Vitamin D3 5000 unit Capsule] 5,000 unit PO BID Cold Cream/Zinc Oxide/Star/Elvin [Dermacloud Ointment] 1 applic TOP PRN PRN Digoxin [Lanoxin 0.125 mg Tablet] 0.125 mg PO QHS 05/05/17 Divalproex Sodium [Depakote] 125 mg PO QHS 05/05/17 Donepezil HCl [Aricept 5 mg Tablet] 5 mg PO DAILY 05/05/17 Ferrous Sulfate [Feosol 325 mg Tablet] 325 mg PO QHS 05/05/17 Guaifenesin [Tussin] 10 ml PO Q4HP PRN 05/05/17 Lisinopril [Prinivil 5 mg Tablet] 5 mg PO DAILY 05/05/17 Magnesium Hydroxide [Milk of Magnesia 30 ml Udcup] 30 ml PO PRN PRN 05/05/17 Omeprazole 20 mg PO DAILY 05/05/17 Pyridoxine HCl [Vitamin B-6] 50 mg PO DAILY 05/05/17 Risperidone [Risperdal] 0.5 mg PO QHS 05/05/17 Ceftriaxone Sodium [Rocephin Inj 2000 mg Vial] 1 gm IM DAILY #5 gm 05/08/17 History of Present Illness History of Present Illness: HPI and initial clinical course as per previous attending: Subjective Progress Note for:: 05/06/17 Subjective:: reason for visit: f/u resp failure, possible PE, NSTEMI, UTI hospital course: NITA SIFUENTES is a 89 year old female with advanced dementia living at [facility] presents today when staff noted her O2 sat low into the 70's and she was less responsive than normal. She is currently obtunded and according to the daughter wouldn't be able to provide ROS or medical hx on her best day anyway, she usually just "hollers out" randomly and only occasionally will she string a few words together that don't always seem appropriate to the conversation at hand. she also notes she is bed bound, hasn't ambulated in years but is able to feed herself and is alert and sits up in chair most days. She saw her last on Sat and she seemed barely able to keep her eyes open at the time but no cough or phlegm, no reported fevers or strong smell of urine and otherwise seemed in her usual state of health. eval in the ED shows her hypercapnic and hypoxic resp failure, she is currently on BiPAP and still not responsive, clear CXR, probable UTI, volume depletion, CONY and hyperkalemia for which she received insulin/dextrose and we were asked to admit for further eval and management. she is DNR. By Saturday she had awakened enough to fight with the staff regarding the BiPAP, she calls out or grunts her displeasure and physically removes the mask from her face. Her daughter states she seems to be hallucinating by reaching into the air for things that aren't there, fiddling with her hands like there is something in them or staring off into space. she moves all 4 extremities but will not follow commands. she will participate in her interview or even seem aware of my presence until I try to examine her and she swats at or pulls away my hands. ROS: unobtainable due to her mental state Hospital Course Hospital Course: The patient responded well to antibiotic therapy and returned to her baseline of yelling intermittently. It was decided not to treat her conditions aggressively, therefore, All presumed/suspected conditions such as NSTEMI or PE were not treated. Only her UTI was treated. IM doses of medication were used because of lack of patient cooperation to take them orally. My recommendation is that her POA consider hospice. Physical Exam Vital Signs: Temp Pulse Resp BP Pulse Ox 97.5 F 36 L 24 H 149/94 H 84 L 05/08/17 10:57 05/08/17 10:57 05/08/17 10:57 05/08/17 10:57 05/08/17 10:57 Intake & Output 05/07/17 05/08/17 05/09/17 06:59 06:59 06:59 Intake Total 300 0 Balance 300 0 Weight 60.3 kg 61.5 kg Physical exam: General: This is a well-developed elderly white female resting in bed initially sleep and then yelling out but in no acute distress Heart: Regular rate and rhythm no murmurs rubs or gallops, Lungs: Clear to auscultation bilaterally from the anterior perspective with equal rise and fall of the chest Abdomen: Soft nondistended with active bowel sounds Extremities: No cyanosis. Trace edema clubbing Neuro: Sleeping initially. Then Alert not oriented patient moves all extremities Results Laboratory Results: 05/08/17 07:30 05/07/17 14:05 05/07/17 05/08/17 14:05 07:30 WBC 6.7 RBC 5.03 Hgb 14.6 Hct 47.1 H MCV 94 MCH 29.0 MCHC 31.0 L RDW 15.8 H Plt Count 123 L Sodium 146.8 H Potassium 4.8 Chloride 103 Carbon Dioxide 32 H Anion Gap 12 BUN 73 H Creatinine 1.29 H Est GFR ( Amer) 47 L Est GFR (Non-Af Amer) 39 L Glucose 119 H Calcium 8.4 05/06/17 04:27 Troponin I 0.282 Impressions: Chest X-Ray 05/05/17 11:24 IMPRESSION: 1. Diminished aeration left base could reflect pneumonia. Otherwise, mild vascular congestion. Qualifiers PATEINT BEING DISCHARGED WITH ANY OF THE FOLLOWING DIAGNOSIS?: No
[2017-05-08 16:04] VITALS: BP 156/84
== END 2017-05-08 17:15 | disposition home health service (06) | DRG 189 ==
LOC: ER 11:19 → EH 13:52 → UNDOADMIN 13:52 → EH 14:58 → 4W 16:05 → EH 16:05
PROVIDERS: ADMIT Internal Medicine; ATTEND Internal Medicine
PROC: 5A09457 Assistance with Respiratory Ventilation, 24-96 Consecutive Hours, Continuous Positive Airway Pressure (ICD-10-PCS; principal; 2017-05-05)
PROC: 3E0F73Z Introduction of Anti-inflammatory into Respiratory Tract, Via Natural or Artificial Opening (ICD-10-PCS; 2017-05-05)
DX: J96.01 Acute respiratory failure with hypoxia (principal); I50.33 Acute on chronic diastolic (congestive) heart failure; G93.41 Metabolic encephalopathy; N39.0 Urinary tract infection, site not specified; N17.9 Acute kidney failure, unspecified; F03.91 Unspecified dementia, unspecified severity, with behavioral disturbance; I11.0 Hypertensive heart disease with heart failure; E87.5 Hyperkalemia; R13.10 Dysphagia, unspecified; I25.10 Atherosclerotic heart disease of native coronary artery without angina pectoris; Z66 Do not resuscitate; F32.9 Major depressive disorder, single episode, unspecified; R74.8 Abnormal levels of other serum enzymes; R79.1 Abnormal coagulation profile; J96.02 Acute respiratory failure with hypercapnia; F10.97 Alcohol use, unspecified with alcohol-induced persisting dementia; I25.2 Old myocardial infarction; Z90.49 Acquired absence of other specified parts of digestive tract; Z90.710 Acquired absence of both cervix and uterus; Z95.0 Presence of cardiac pacemaker; Z79.82 Long term (current) use of aspirin; Z79.899 Other long term (current) drug therapy; Z88.6 Allergy status to analgesic agent
CPT/HCPCS: 36415; 51701; 71010; 80048; 80053; 80162; 81001; 82550; 82553; 82803; 83880; 84484; 85025; 85027; 85379; 85610; 85730; 87040; 87086; 87088; 87186; 93005; 93010; 94640; 94660; 96361; 96374; 96375; 99291; J0610; J0696; J1630; J1650; J1815; J2060; J2270; J3490; J7030; J7620; S0028

== ENCOUNTER 2017-05-10 23:29 | Emergency (ER) | payer MEDICARE ==
--- NOTE | 2017-05-11 01:02 | RADIOLOGY REPORT (SQ) ---
EXAM DESCRIPTION: CHEST SINGLE VIEW COMPLETED DATE/TIME: 05/11/2017 12:50 am REASON FOR STUDY: dyspnea COMPARISON: 05/05/2017. EXAM PARAMETERS: NUMBER OF VIEWS: One view. TECHNIQUE: Single frontal radiographic view of the chest acquired. RADIATION DOSE: NA LIMITATIONS: None. FINDINGS: LUNGS AND PLEURA: Left lower lobar-retrocardiac opacity. MEDIASTINUM AND HILAR STRUCTURES: No masses. Contour normal. HEART AND VASCULAR STRUCTURES: Mild enlargement of the cardiac silhouette. BONES: No acute findings. HARDWARE: Right subclavian cardiac stimulation device and leads. OTHER: No other significant finding. IMPRESSION: No significant interval change. Left lower lobar/ retrocardiac opacity. TECHNICAL DOCUMENTATION: JOB ID: [id number]
--- NOTE | 2017-05-11 02:06 | ER Document Report ---
ED General - General Chief Complaint: Respiratory Distress Stated Complaint: BREATHING DIFFICULTY Time Seen by Provider: 05/11/17 00:03 Notes: Patient is an 89-year-old female presents with complaint of difficulty breathing. No chest pain. No shortness of breath. Telemetry patient appeared very agitated and confused at the care home. She also seemed short of breath. The paramedics arrived she is 85% on room air and therefore they placed her on a nonrebreather. Paramedics that after placed on nonrebreather she calmed down immediately and has been calm ever since. She was recently admitted to the hospital. At that time she had possibility of pneumonia on chest x-ray and also UTI. She was given doses of Rocephin for her UTI. She also had elevated cardiac troponin; however, family said she was a DNR and did not want any further treatment. At that time to discuss workup for PE and MS but the family wanted just limited care at that time. Family is at bedside that that they want to continue with limited care but also want to keep her comfortable. TRAVEL OUTSIDE OF THE [place] IN LAST 30 DAYS: No - Related Data Allergies/Adverse Reactions: ibuprofen [From Motrin] Allergy (Verified 05/05/17 11:46) Past Medical History - Social History Smoking Status: Unknown if Ever Smoked Frequency of alcohol use: None Drug Abuse: None Family History: Reviewed & Not Pertinent - Past Medical History Cardiac Medical History: Reports: Hx Congestive Heart Failure, Hx Heart Attack, Hx Hypertension Renal/ Medical History: Denies: Hx Peritoneal Dialysis Psychiatric Medical History: Reports: Hx Dementia, Hx Depression Past Surgical History: Reports: Hx Cardiac Surgery - pacemaker, Hx Cholecystectomy, Hx Hysterectomy, Hx Pacemaker Review of Systems - Review of Systems -: Yes ROS unobtainable due to patient's medical condition - Patient has dementia. Physical Exam - Vital signs Vitals: BP 121/69 05/10/17 23:52 - Notes Notes: General Appearance: Well nourished, alert, cooperative, no acute distress, no obvious discomfort. Vitals: reviewed, See vital signs table. Head: no swelling or tenderness to the head Eyes: PERRL, EOMI, Conjuctiva clear Mouth: No decreasd moisture Neck: Supple, no neck tenderness Lungs: No wheezing, No rales, No rhonci, No accessory muscle use, good air exchange bilaterally. Heart: Normal rate, Regular rythm, No murmur, no rub Abdomen: Normal BS, soft, No rigidity, No abdominal tenderness, No guarding, no rebound, no abdominal masses, no organomegaly Extremities: strength 5/5 in all extremities, good pulses in all extremities, no swelling or tenderness in the extremities, no edema. Skin: warm, dry, appropriate color, no rash Neuro: speech clear, oriented x 1, normal affect, patient swallowing answer a few questions. She did is able to move her extremities on her own. Cranial nerves II through XII are grossly intact. Course - Vital Signs Vital signs: Temp Pulse Resp BP Pulse Ox 97 F L 74 22 H 104/66 96 05/11/17 00:31 05/11/17 00:31 05/11/17 07:01 05/11/17 07:01 05/11/17 07:01 - Laboratory Result Diagrams: 05/11/17 03:49 05/11/17 03:49 Laboratory results interpreted by me: 05/11/17 05/11/17 03:49 03:49 MCHC 31.1 L RDW 16.3 H Plt Count 85 L Monocytes % 13.7 H Sodium 146.5 H Potassium 5.2 H Carbon Dioxide 36 H BUN 54 H Total Protein 6.2 L Albumin 3.0 L - EKG Interpretation by Me Additional EKG results interpreted by me: 05/11/17 02:05 EKG is reviewed and interpreted by me. EKG shows sinus rhythm with a rate of 71 bpm. First-degree AV patricia block. No ST segment elevation or depression. Some T-wave inversions in the anterior lateral leads. UT interval is prolonged. QRS duration QT intervals are within normal range. Old EKG for comparison is from May 05, 2017. - Transfer of Care Notes: 05/11/17 09:51 During patient's stay was able to wean her down to 2 L of oxygen and she did well. I eventually turned her oxygen off. Approximately 4 minutes after turning off her oxygen she started to desat into the mid to upper 80s. Place her back on 2 L of oxygen. Her O2 saturations stay well above 95% on just 2 L. I suspect that the patient is having intermittent desaturations of her oxygen level and that is when she starts to become confused and at times combative at the care home. I did call the care home and informed him that I would be ordering 2 L of oxygen nasal cannula continuously. They understand this. I also wrote an order to go with her to the care home. Her chest x-ray continues to show a possible retrocardiac pneumonia. She has no white count or fever however she is having these desaturations and her oxygen and therefore I will place her on antibiotic. I did speaking with the family and they want to continue with just minimal care. I informed him that if they do not want aggressive care such as blood thinners or any type of intervention then we would not do further workup for things such as MS or PE. The daughter is agreeable to this. Patient has been doing well on 2 L nasal cannula and will be discharged back to the care home. Dictation of this chart was performed using voice recognition software; therefore, there may be some unintended grammatical errors. Discharge - Discharge Clinical Impression: Hypoxemia, Pneumonia Condition: Good Disposition: HOME, SELF-CARE Additional Instructions: I have included an order to keep Mrs. Stevenson on 2 liters of oxygen continuously because she has intermittent bouts of hypoxia at rest. Her chest xray also shows a possible pneumonia. We will treat with Levaquin. Please have her doctor reevaluate her in the next 2-3 days. Please return to the ER immediately if Mrs. stevenson has difficulty breathing, fevers, or appears unwell. Prescriptions: Levofloxacin [Levaquin 750 mg Tablet] 750 mg PO DAILY #5 tablet Referrals: BRIANNE PINTO MD [Primary Care Provider] - 05/13/17
[2017-05-11 04:06] LABS: ABSOLUTE EOSINOPHILS # (AUTO) 0.3 10^3/uL (0.0-0.6); ABSOLUTE LYMPHOCYTES (AUTO) 1.2 10^3/uL (0.5-4.7); ABSOLUTE MONOCYTES (AUTO) 1.2 10^3/uL (0.1-1.4); ABSOLUTE NEUT (AUTO) 5.7 10^3/uL (1.7-8.2); BASOPHILS % (AUTO) 0.4 % (0-2); EOSINOPHILS % (AUTO) 3.7 % (0-6); HEMATOCRIT 46.9 % (36.0-47.0); HEMOGLOBIN 14.6 g/dL (12.0-15.5); HGB HCT DIFFERENCE -3.1; LYMPHOCYTES % (AUTO) 14.7 % (13-45); MEAN CORPUSCULAR HGB CONC 31.1 g/dL (32.0-36.0); MEAN CORPUSCULAR VOLUME 93 fl (80-97); MONOCYTES % (AUTO) 13.7 % (3-13); RED BLOOD COUNT 5.03 10^6/uL (3.72-5.28); RED CELL DISTRIBUTION WIDTH 16.3 % (11.5-14.0); SEGMENTED NEUTROPHILS % (AUTO) 67.5 % (42-78); WHITE BLOOD COUNT 8.4 10^3/uL (4.0-10.5)
[2017-05-11 04:16] LABS: ALANINE AMINOTRANSFERASE 28 U/L (9-52); ALKALINE PHOSPHATASE 42 U/L (38-126); ANION GAP 8 (5-19); ASPARTATE AMINO TRANSFERASE 32 U/L (14-36); BILIRUBIN,DIRECT 0.4 mg/dL (0.0-0.4); BILIRUBIN,TOTAL 0.4 mg/dL (0.2-1.3); BLOOD UREA NITROGEN 54 mg/dL (7-20); CALCIUM 8.5 mg/dL (8.4-10.2); CARBON DIOXIDE 36 mmol/L (22-30); CHLORIDE 103 mmol/L (98-107); GLUCOSE 107 mg/dL (75-110); POTASSIUM 5.2 mmol/L (3.6-5.0); SODIUM 146.5 mmol/L (137-145); TOTAL PROTEIN 6.2 g/dL (6.3-8.2)
[2017-05-11] MEDS ORDERED: LEVOFLOXACIN 750 MG TABLET PO ONE (06:37)
[2017-05-11 12:30] VITALS: BP 123/75
--- NOTE | 2017-05-13 09:34 | EKG REPORT ---
SEVERITY:- ABNORMAL ECG - ATRIAL-PACED COMPLEXES VS SR FIRST DEGREE AV BLOCK LEFT ANTERIOR FASCICULAR BLOCK ANTERIOR INFARCT, AGE INDETERMINATE BORDERLINE T ABNORMALITIES, INFERIOR LEADS : Confirmed by: Socorro Thomas 13-May-2017 09:34:26
== END 2017-05-11 12:31 | disposition home or self-care (01) ==
LOC: ER 23:29
DX: J18.9 Pneumonia, unspecified organism (principal); R09.02 Hypoxemia; R06.02 Shortness of breath; R41.82 Altered mental status, unspecified
CPT/HCPCS: 36415; 71010; 80053; 85025; 93005; 93010; 99285

== ENCOUNTER 2017-05-15 | Inpatient (IN) | payer MEDICARE, OTHER ==
--- NOTE | 2017-05-15 00:32 | ER Document Report ---
ED General - General Chief Complaint: General Weakness Stated Complaint: UNRESPONSIVE Time Seen by Provider: 05/15/17 00:21 Notes: Patient is an 89-year-old female that comes to emergency department by EMS from [id number] for chief complaint of altered mental status. Patient has become increasingly responsive since about 7 PM on 05/14/2017, patient will respond to painful stimuli and occasionally arouse and say something but is otherwise not responding. This is a change from her normal although she does have Alzheimer's/dementia and is limited verbally. Patient has a DO NOT RESUSCITATE advanced directive. Past medical history includes hypertension, hyperlipidemia, coronary artery disease, COPD with 2 L nasal cannula oxygen dependence. No fever, vomiting, cough, diarrhea, or other symptoms reported. Daughter is at bedside. TRAVEL OUTSIDE OF THE [place] IN LAST 30 DAYS: No - Related Data Allergies/Adverse Reactions: ibuprofen [From Motrin] Allergy (Verified 05/05/17 11:46) Past Medical History - General Information source: Relative, Emergency Med Personnel - Social History Smoking Status: Former Smoker Frequency of alcohol use: None Drug Abuse: None Lives with: Long Term Family History: Reviewed & Not Pertinent - Past Medical History Cardiac Medical History: Reports: Hx Congestive Heart Failure, Hx Heart Attack, Hx Hypertension Renal/ Medical History: Denies: Hx Peritoneal Dialysis Psychiatric Medical History: Reports: Hx Dementia, Hx Depression Past Surgical History: Reports: Hx Cardiac Surgery - pacemaker, Hx Cholecystectomy, Hx Hysterectomy, Hx Pacemaker Review of Systems - Review of Systems Constitutional: See HPI EENT: No symptoms reported Cardiovascular: No symptoms reported Respiratory: See HPI Gastrointestinal: No symptoms reported Genitourinary: No symptoms reported Female Genitourinary: No symptoms reported Musculoskeletal: No symptoms reported Skin: No symptoms reported Hematologic/Lymphatic: No symptoms reported Neurological/Psychological: See HPI Physical Exam - Vital signs Vitals: Resp 28 H 05/15/17 00:08 Interpretation: Normal - General General appearance: Unresponsive In distress: None - HEENT Head: Normocephalic, Atraumatic Eyes: Normal Pupils: PERRL - Respiratory Respiratory status: No respiratory distress. No: Tachypnea Breath sounds: Decreased air movement - Cardiovascular Rhythm: Regular. No: Tachycardia Heart sounds: Normal auscultation, S1 appreciated, S2 appreciated - Abdominal Inspection: Normal Distension: No distension Bowel sounds: Normal Tenderness: Nontender. No: Tender - Back Back: Normal, Nontender - Extremities General upper extremity: Normal inspection General lower extremity: Normal inspection. No: Edema - Neurological Erbacon Coma Scale Eye Opening: To Pain Erbacon Coma Scale Verbal: Incomprehensible Deepika Coma Scale Motor: Withdraws to Pain - not consistently Deepika Coma Scale Total: 8 - Skin Skin Temperature: Warm Skin Moisture: Dry Skin Color: Normal Course - Re-evaluation Re-evalutation: Patient is unresponsive on my examination, even to sternal rub. Occasionally mumbles. She is not hypoxic, she does not have tachypnea, no hypotension, no tachycardia. Workup initiated, initially 3 family members at bedside and wanting workup, however I begin to get laboratory values back, venous blood gas noted to have significant hypercarbia with acidosis. Consistent with respiratory failure, this is most likely the cause of patient's somnolent state. CBC shows elevated hemoglobin consistent with dehydration, chemistry shows hyperkalemia of 5.7. I discussed these values with the family, discussed BiPAP therapy to attempt to reduce patient's hypercarbia and restore her mental state, however because of patient's rapid decline recently, ongoing issues with pneumonia, respiratory failure, and advanced directives of DO NOT RESUSCITATE, climbed BiPAP therapy, rehydration, potassium treatment, or any other medical intervention other than comfort measures. Patient's power of senior attorney is her daughter, Winnie, who was at bedside and states that this is her wish. Based using ultrasound-guided technique because of difficulty, patient will be discussed with internal medicine for hospitalization and comfort measures. Discussed with Dr. Blancas. Discussed with Dr. Kan, internal medicine, patient will be admitted to the medical floor. - Vital Signs Vital signs: Temp Pulse Resp BP Pulse Ox 26 H 119/70 96 05/15/17 06:16 05/15/17 06:16 05/15/17 06:16 - Laboratory Result Diagrams: 05/15/17 00:30 05/15/17 00:30 Laboratory results interpreted by me: 05/15/17 05/15/17 05/15/17 00:30 00:30 00:30 RBC 5.52 H Hgb 15.9 H Hct 53.7 H MCHC 29.6 L RDW 16.3 H Plt Count 94 L Seg Neutrophils % 78.3 H Lymphocytes % 11.1 L VBG pH 7.12 L* VBG pCO2 161.5 H* VBG HCO3 51.0 H Sodium 147.6 H Potassium 5.7 H Carbon Dioxide 38 H BUN 30 H Albumin 3.3 L Urine Blood 05/15/17 01:40 RBC Hgb Hct MCHC RDW Plt Count Seg Neutrophils % Lymphocytes % VBG pH VBG pCO2 VBG HCO3 Sodium Potassium Carbon Dioxide BUN Albumin Urine Blood SMALL H Discharge - Discharge Clinical Impression: Respiratory failure Qualifiers: Chronicity: acute on chronic Respiratory failure complication: hypercapnia Qualified Code(s): J96.22 - Acute and chronic respiratory failure with hypercapnia Altered mental status Qualifiers: Altered mental status type: somnolence Qualified Code(s): R40.0 - Somnolence Condition: Poor Disposition: ADMITTED INPATIENT Admitting Provider: Hospitalist Unit Admitted: Medical Floor
[2017-05-15 01:20] LABS: ALANINE AMINOTRANSFERASE 29 U/L (9-52); ALBUMIN 3.3 g/dL (3.5-5.0); ALKALINE PHOSPHATASE 61 U/L (38-126); ASPARTATE AMINO TRANSFERASE 26 U/L (14-36); BILIRUBIN,DIRECT 0.4 mg/dL (0.0-0.4); BILIRUBIN,TOTAL 0.7 mg/dL (0.2-1.3); BLOOD UREA NITROGEN 30 mg/dL (7-20); CALCIUM 9.1 mg/dL (8.4-10.2); CHLORIDE 102 mmol/L (98-107); CREATININE RESULT 0.64 mg/dL (0.52-1.25); GLUCOSE 107 mg/dL (75-110); POTASSIUM 5.7 mmol/L (3.6-5.0); SODIUM 147.6 mmol/L (137-145); TOTAL PROTEIN 6.7 g/dL (6.3-8.2)
[2017-05-15 01:21] LABS: VENOUS BLOOD BASE EXCESS 13.3 mmol/L
[2017-05-15 01:27] LABS: ANION GAP 8 (5-19)
[2017-05-15 01:28] LABS: CARBON DIOXIDE 38 mmol/L (22-30)
[2017-05-15 01:30] LABS: VENOUS BLOOD PCO2 161.5 mmHg (35-63); VENOUS BLOOD PH 7.12 (7.30-7.42)
[2017-05-15 01:56] LABS: ABSOLUTE EOSINOPHILS # (AUTO) 0.1 10^3/uL (0.0-0.6); ABSOLUTE LYMPHOCYTES (AUTO) 0.7 10^3/uL (0.5-4.7); ABSOLUTE MONOCYTES (AUTO) 0.5 10^3/uL (0.1-1.4); ABSOLUTE NEUT (AUTO) 5.1 10^3/uL (1.7-8.2); BASOPHILS % (AUTO) 0.4 % (0-2); EOSINOPHILS % (AUTO) 1.8 % (0-6); HEMATOCRIT 53.7 % (36.0-47.0); HEMOGLOBIN 15.9 g/dL (12.0-15.5); LYMPHOCYTES % (AUTO) 11.1 % (13-45); MEAN CORPUSCULAR HEMOGLOBIN 28.8 pg (27.0-33.4); MEAN CORPUSCULAR HGB CONC 29.6 g/dL (32.0-36.0); MONOCYTES % (AUTO) 8.4 % (3-13); RED BLOOD COUNT 5.52 10^6/uL (3.72-5.28); RED CELL DISTRIBUTION WIDTH 16.3 % (11.5-14.0); SEGMENTED NEUTROPHILS % (AUTO) 78.3 % (42-78); WHITE BLOOD COUNT 6.5 10^3/uL (4.0-10.5)
[2017-05-15 01:57] LABS: MEAN CORPUSCULAR VOLUME 97 fl (80-97)
[2017-05-15 02:09] LABS: APPEARANCE,URINE SLIGHTLY-CLOUDY; BILIRUBIN,URINE NEGATIVE (NEGATIVE); GLUCOSE, URINE NEGATIVE (NEGATIVE); KETONES,URINE NEGATIVE (NEGATIVE); LEUKOCYTE ESTERASE,URINE NEGATIVE (NEGATIVE); NITRITE,URINE NEGATIVE (NEGATIVE); PROTEIN,URINE NEGATIVE (NEGATIVE); URINE SPECIFIC GRAVITY 1.015; UROBILINOGEN,URINE NEGATIVE mg/dL (<2.0)
[2017-05-15 07:14] VITALS: BP 131/93
[2017-05-15] MEDS ORDERED: LORAZEPAM 24 MG/240 ML BAG IV PRN (08:40)
[2017-05-15] MEDS ORDERED: LORAZEPAM INJ 2 MG/1 ML VIAL IV ONE (08:42)
[2017-05-15] MEDS ORDERED: MORPHINE SULFATE 10 MG/ML INJ IV ONE (08:43)
[2017-05-15] MEDS ORDERED: FUROSEMIDE INJ/PF 40 MG/4 ML SDV IV ONE (08:43)
[2017-05-15] MEDS ORDERED: NORMAL SALINE 500 ML IV PRN (08:45)
[2017-05-15] MEDS ORDERED: LEVETIRACETAM 1000 MG/NACL-ISO 100 ML IV SCH (10:00)
--- NOTE | 2017-05-15 11:11 | EKG REPORT ---
SEVERITY:- ABNORMAL ECG - SINUS RHYTHM ATRIAL PREMATURE COMPLEX FIRST DEGREE AV BLOCK LEFT ANTERIOR FASCICULAR BLOCK ANTERIOR INFARCT, AGE INDETERMINATE BORDERLINE T ABNORMALITIES, INFERIOR LEADS : Confirmed by: Socorro Thomas 15-May-2017 11:11:11
--- NOTE | 2017-05-15 14:34 | HISTORY AND PHYSICAL E ---
History and Physical NAME: NITA SIFUENTES : 1925 AGE: 89Y ADMITTED: 05/15/2017 ROOM: 527 CODE STATUS: DO NOT RESUSCITATE/DO INTUBATE WITH COMFORT CARE MEASURES ONLY. PRIMARY CARE PROVIDER: Radu Johnson CHIEF COMPLAINT: Difficulty breathing. HISTORY OF PRESENT ILLNESS: The patient is an 89-year-old female with a past medical history of oxygen dependent COPD and coronary artery disease. The patient presented to the emergency department due to shortness of breath and unresponsiveness. The patient was brought in via EMS from [facility] due to altered mental status. The patient had been becoming increasingly unresponsive since 0 on 05/14/2017. The patient eventually would respond to painful stimuli and occasionally arouse to say something, however, was not very responsive. As per history, the patient had underlying Alzheimer's dementia and was limited verbally. The patient did have DO NOT RESUSCITATE/DO NOT INTUBATE advanced directives in place and family is at bedside. During workup, it was found the patient was tachypneic, hypotensive, and tachycardic. Initial blood work showed a severe hypercapnia with acidosis, consistent with respiratory failure, which would explain the patient's somnolent state. The patient was also found to be hyperkalemic and evidence of dehydration with elevated hemoglobin. After much discussion with the family by the ER providers, the family elected to decline BiPAP or oral intubation and elected to proceed with comfort measures only. While in the emergency department, the patient was found to have involuntary jerking movements and moaning, which was distressing to family as well. PAST MEDICAL HISTORY: 1. Coronary artery disease. 2. Dementia. 3. Depression. 4. Oxygen dependent chronic obstructive pulmonary disease. PAST SURGICAL HISTORY: 1. Cholecystectomy. 2. Hysterectomy. ALLERGIES: IBUPROFEN. HOME MEDICATIONS: 1. Tylenol 650 mg p.o. q.6 h. p.r.n. 2. Aspirin 325 mg p.o. daily. 3. Vitamin D 400 with calcium 600 one p.o. b.i.d. 4. Coreg 6.25 mg p.o. q.12 h. 5. Vitamin D3 at 5000 international units p.o. b.i.d. 6. Digoxin 0.125 mg p.o. q hour of sleep. 7. Depakote 125 mg p.o. q hour of sleep. 8. Aricept 5 mg p.o. daily. 9. Ferrous sulfate 325 mg p.o. q hour of sleep. 10. Guaifenesin 200 mg p.o. q.4 h. p.r.n. 11. Lisinopril 5 mg p.o. daily. 12. Milk of magnesia 30 mL p.o. b.i.d. p.r.n. 13. Omeprazole 20 mg p.o. q.a.m. 14. Vitamin D6 at 50 mg p.o. daily. 15. Risperdal 0.5 mg p.o. q hour of sleep. SOCIAL HISTORY: The patient had no history of alcohol abuse or illicit drug use. Has been a reported nonsmoker. Resides in a residential facility. FAMILY MEDICAL HISTORY: Positive for coronary artery disease and COPD in multiple family members. The patient does have children who are healthy, no chronic issues. Siblings have . Both parents are . REVIEW OF SYSTEMS: Full review of systems cannot be appreciated, given the patient's mental status. PHYSICAL EXAMINATION: GENERAL: On examination, the patient is a frail, chronically ill-appearing 89-year-old female who is unresponsive, even to noxious stimuli. Does appear to be in some mild distress. VITAL SIGNS ARE FOLLOWS: Temperature is 98.8, pulse 105, respirations 23, oxygen saturation is 92% on 2 liters nasal cannula. SKIN: Pale, dry. No rash. HEENT: Pupils are sluggish, but reactive. Conjunctivae are pale. Sclerae are nonicteric. There are no mouth lesions. Tongue is midline. NECK: Supple. No JVD. CARDIOVASCULAR: Heart is tachycardic. No murmur or rub. CHEST: Diminished, labored, symmetrical. ABDOMEN: Soft, nontender, as the patient did not grimace. Does not appear to be distended. Bowel sounds are hypoactive. No palpable organomegaly. BACK: No sacral edema. EXTREMITIES: Cool, but acyanotic. No edema, clubbing. PSYCHIATRIC: Unable to fully assess. DIAGNOSTICS: Lab values are as follows. Hematology obtained on 05/15/2017: WBCs are 6.5, hemoglobin is 15.9, hematocrit is 53.7, platelet count is 94,000. Venous blood gas obtained on 05/15/2017 reveals a pH of 7.12, pCO2 is 162, bicarb 51. Chemistry obtained on 05/15/2017: Sodium is 146, potassium 5.7, chloride 102, carbon dioxide 38, BUN 30, creatinine 0.64, glucose 107, calcium is 9.1. Bilirubin 0.7, AST 26, ALT 29, alkaline phosphatase 61. Total protein 6.7, albumin 3.3. Urinalysis: Color yellow, appearance slightly cloudy, pH is 5.0, specific gravity is 1.015, protein negative, glucose negative, ketones negative, small, nitrate negative, bilirubin negative, urobilinogen negative, leukocyte esterase is negative, wbc's 10, rbc's 26, bacteria trace. Blood cultures obtained on 05/15/2017 are pending. IMPRESSION AND PLAN: 1. Chronic obstructive pulmonary disease exacerbation. The patient is comfort care measures. Will continue oxygen for patient comfort and nebulizers for patient's comfort. 2. Pjcdk-he-khsvmki hypoxemic and hypercapnic respiratory failure. Will continue supportive comfort measures. Discussed this in detail with Winnie, the patient's feagz-nk-aolbcons and daughter. Will proceed with comfort measures only. 3. Questionable seizures. Most likely this is secondary to hypercapnia. The patient has had significant involuntary movements and it has been somewhat distressing. Discussed this with the daughter. Will give the patient a now dose of Keppra, as well as Ativan, and start the patient on an Ativan drip to hopefully prevent seizures. 4. Coronary artery disease. Defer home medications for now. 5. Hypertension. Once again, will defer for now as the patient is comfort measures. 6. Deep venous thrombosis prophylaxis. Defer for comfort. DISPOSITION: The patient is a DO NOT RESUSCITATE/DO NOT INTUBATE WITH COMFORT CARE MEASURES ONLY. Pending patient symptomatology, will reevaluate as needed. The patient will be admitted to inpatient medicine as the patient's suspected length of stay past 2 midnights. The patient will need IV management of pain and anxiety. Time spent on this admission including assessment, plan, physical examination, attempted patient education, and family meeting is 45 minutes. DICTATING PHYSICIAN: DIOGO REYNOSO NP [id number] PHY#: [id number] ID: [id number] JOB#: [id number] ACCT: [id number] cc: > MTDD
--- NOTE | 2017-05-15 15:18 | DEATH SUMMARY E ---
Summary NAME: NITA SIFUENTES : 1925 AGE: 89Y ADMITTED: 05/15/2017 : DATE OF : 05/15/2017 TIME of : 744 CODE STATUS: DO NOT RESUSCITATE, DO NOT INTUBATE with comfort care measures only. PRIMARY CARE PROVIDER: Radu Johnson MD FINAL DIAGNOSES: 1. Chronic obstructive pulmonary disease exacerbation. 2. Acute on chronic hypoxemic and hypercapnic respiratory failure. 3. Coronary artery disease. 4. Hypertension. 5. Dementia, most likely vascular. HOSPITAL COURSE: The patient was an 89-year-old female with a past medical history of oxygen dependent COPD. The patient presented to the emergency department due to altered mental status and increasing shortness of breath. While in the emergency department, workup revealed severe respiratory failure with evidence of respiratory acidosis with a pH of 7.1 and pCO2 of greater than 160. After much discussion with the family, they elected to proceed with comfort care measures and deferred BiPAP or intubation. The patient was admitted to continuous telemetry unit. She was started on Keppra given involuntary movements and concern for underlying seizures related to her hypercapnia. The patient was also started on Ativan drip. The patient was accompanied by her daughter who was also her power of deputy county attorney and decision maker who was in agreement with the plan. The patient's daughter notified nursing staff that she felt the patient had passed and at 1045 hours, the patient was pronounced asystole. certificate is being completed and the patient's body can be released to the home. The patient appeared to have comfortably. TIME SPENT: Time spent on this visit as well as summary was 15 minutes. DICTATING PHYSICIAN: DIOGO REYNOSO NP [id number] PHY#: [id number] ID: [id number] JOB#: [id number] ACCT: [id number] cc:DIOGO REYNOSO NP > MTDD
== END 2017-05-15 13:48 | disposition left against medical advice (07) | DRG 190 ==
LOC: ER → EH 06:34 → UNDOADMIN 06:34 → 5 07:33 → EH 07:33 → 5 08:38
PROVIDERS: ADMIT Family Medicine; ATTEND Family Medicine
DX: J44.1 Chronic obstructive pulmonary disease with (acute) exacerbation (principal); J96.22 Acute and chronic respiratory failure with hypercapnia; J96.01 Acute respiratory failure with hypoxia; E87.2 Acidosis; I25.10 Atherosclerotic heart disease of native coronary artery without angina pectoris; R40.0 Somnolence; G30.9 Alzheimer's disease, unspecified; E87.5 Hyperkalemia; I10 Essential (primary) hypertension; R56.9 Unspecified convulsions; E86.0 Dehydration; F02.80 Dementia in other diseases classified elsewhere, unspecified severity, without behavioral disturbance, psychotic disturbance, mood disturbance, and anxiety; Z66 Do not resuscitate; F32.9 Major depressive disorder, single episode, unspecified; Z90.49 Acquired absence of other specified parts of digestive tract; Z99.81 Dependence on supplemental oxygen; Z51.5 Encounter for palliative care; Z82.61 Family history of arthritis; Z79.82 Long term (current) use of aspirin; Z79.899 Other long term (current) drug therapy
CPT/HCPCS: 36415; 80053; 81001; 82803; 85025; 87040; 93005; 93010; 99285; J1940; J1953; J2060; J2270; J7040